=== PATIENT | male | born 1955 | race Caucasian/White ===

== ENCOUNTER → 2020-01-09 | Outpatient (CLI) | payer OTHER ==
[~2020-01-09] MED LIST: ACCUPRIL40 MG PO; ADULT LOW DOSE81 MG PO; BENICAR20 MG; CALCIUM OYSTER500 MG PO; CENTRUM TABLET1 TAB PO; FLONASE 0.05%50 MCG NS; KLOR-CON 1010 MEQ PO; NORPACE CR150 MG PO; OMEGA-31000 MG PO; TORSEMIDE20 MG PO; VERAPAMIL E.R240 M1 PO; ZOCOR 10 MG TAB10 MG
== END ==
LOC: SJCVCIMAG 07:35
DX: I08.3 Combined rheumatic disorders of mitral, aortic and tricuspid valves (principal); I11.9 Hypertensive heart disease without heart failure; I42.1 Obstructive hypertrophic cardiomyopathy; I25.10 Atherosclerotic heart disease of native coronary artery without angina pectoris; E78.5 Hyperlipidemia, unspecified; I71.2 Thoracic aortic aneurysm, without rupture; I48.0 Paroxysmal atrial fibrillation; I35.9 Nonrheumatic aortic valve disorder, unspecified; R06.09 Other forms of dyspnea; Z79.899 Other long term (current) drug therapy